=== PATIENT | male | born 1995 | race Caucasian/White ===

== ENCOUNTER 2018-05-07 02:19 | Emergency (ER) | payer OTHER ==
[2018-05-07 03:54] LABS: AMPHETAMINE/METHAMPHETAMINE Negative (NEGATIVE); BARBITURATES Negative (NEGATIVE); BENZODIAZEPINES Negative (NEGATIVE); CANNABINOIDS Negative (NEGATIVE); COCAINE Negative (NEGATIVE); OPIATES Negative (NEGATIVE)
[2018-05-07 04:34] LABS: HEPATITIS B SURFACE ANTIGEN NEGATIVE (NEGATIVE)
[2018-05-07 04:51] LABS: HEPATITIS B SURFACE ANTIBODY POSITIVE (NEGATIVE)
[2018-05-07 04:51] LABS: HEPATITIS C VIRAL ANTIBODY NEGATIVE (NEGATIVE); HIV 1&2 ANTIBODY NEGATIVE (NEGATIVE)
== END 2018-05-07 04:32 | disposition home or self-care (01) ==
LOC: E/R 02:19
DX: R05 Cough (principal); F17.210 Nicotine dependence, cigarettes, uncomplicated; S91.339A Puncture wound without foreign body, unspecified foot, initial encounter; W46.0XXA Contact with hypodermic needle, initial encounter; Y92.9 Unspecified place or not applicable
CPT/HCPCS: 71045; 80307; 86703; 86706; 86803; 87340; 99285-25